=== PATIENT | female | born 1965 | race Caucasian/White ===

== ENCOUNTER → 2017-07-11 | Outpatient (CLI) | payer BC ==
--- NOTE | 2017-07-12 14:01 | MR ---
EXAMINATION TYPE: MR liver wo/w con and mrcp DATE OF EXAM: 07/11/2017 COMPARISON: Liver ultrasound June 19, 2017. MRI lumbar spine June 11, 2017 HISTORY: Liver lesion, Abnormal findings CONTRAST: Standard multiplanar, multisequence MRI departmental protocol utilizing 7 mL intravenous Gadavist dipti olinium contrast. Thin and thick slice MRCP imaging is performed without contrast. FINDINGS: LIVER/GB/PANCREAS: Liver is felt overall upper limits of normal in size on MRI. Gallbladder is within normal limits. There is mild central intrahepatic biliary dilatation. There is more moderate extrahe patic biliary dilatation. No obstructing mass or stone is clearly seen. Pancreatic duct is visualized but not suspiciously dilated. Pancreas is overall normal in size without worrisome solid or cystic m ass. Corresponding to recent MRI there is subcentimeter T2 hyperintense lesion posterior segment righ t hepatic lobe image 25 series 501, this lesion shows homogeneous enhancement but reflect flash filli ng hemangioma. No additional worrisome solid or cystic intrahepatic mass is seen. OTHER: Lung bases are grossly clear. There is partial visualization of bilateral breast implants prob able silicone implants. The spleen and both adrenal glands are normal in size and appear grossly unre markable. Visualized bowel shows no suspicious dilatation. There is no concerning abdominal fluid col lection. There is no greater than 1 cm abdominal adenopathy. There is small hemangioma left L4 verteb ra. IMPRESSION: 1. Corresponding to lumbar spine MRI there is 8 mm lesion posterior segment right hepatic lobe that s hows homogeneous enhancement, flash filling hemangioma is favored. 2. There is mild central intrahepatic and more moderate extrahepatic biliary dilatation without obvio us obstructing mass or stone. Perhaps there is stricture at the duodenal ampulla. Consider ERCP to ex clude ampullary mass not identified on MRI.
== END | disposition home or self-care (01) ==
LOC: RADMRIMAIN 12:11
PROVIDERS: ATTEND Internal Medicine Gastroenterology
DX: K76.9 Liver disease, unspecified (principal); R93.2 Abnormal findings on diagnostic imaging of liver and biliary tract
CPT/HCPCS: 82565; 74183; A9581

== ENCOUNTER 2017-07-14 07:53 | Day surgery (SDC) | payer BC, OTHER ==
[2017-07-08 23:26] VITALS: BMI 27.4
[~2017-07-14 07:53] MED LIST: LACTATED RINGERS 1,000 ML IV SCH; LIDOCAINE 1% 20 ML VIAL (10MG/ML) FOR IV START INTRADERMA PRN
[2017-07-14 08:29] VITALS: PULSE 80; TEMP 97
[2017-07-14] MEDS ORDERED: PROPOFOL 10 MG/ML 20 ML VIAL IV ONE (09:08)
--- NOTE | 2017-07-14 09:32 | P.PCN ---
Date of Procedure: 07/14/17 Preoperative Diagnosis: Change in bowel habits, questionable hepatic lesion Postoperative Diagnosis: Diverticuli, internal hemorrhoids, questionable hyperplastic change at 30 cm biopsy obtained Procedure(s) Performed: Colonoscopy with biopsy 30 cm Anesthesia: MAC Surgeon: Danica Adams Estimated Blood Loss (ml): 0 IV fluids (ml): 400 Pathology: other (Cold biopsy 30 cm) Condition: stable Disposition: PACU Indications for Procedure: Change in bowel habits, questionable liver lesion, rule out metastatic disease from colon primary Operative Findings: Diverticuli, internal hemorrhoids, questionable hyperplastic change at 30 cm biopsy obtained Description of Procedure: Patient was taken to the endoscopy suite and following sedation rectal exam was performed patient was noted to have good sphincter tone no masses colonoscope was passed through the anus into the rectum to the sigmoid colon up to splenic flexure transverse colon hepatic flexure right colon down to the area of the cecum circumferential observation mucosa did not reveal any lesions of concern in the cecum or right colon no lesions of concern in the transverse colon no lesions of concern in the left colon scattered diverticuli noted in the sigmoid colon. At 30 cm a small hyperplastic questionable change was noted and cold biopsy was obtained. Scope was brought down to the rectum where it was retroflexed internal hemorrhoids identified. Approximately 7 minutes were taken to withdraw the scope from the area of the cecum to the rectum. Impression/plan: 1. Questionable hyperplastic change 30 cm biopsy obtained 2. Scattered diverticuli 3. Internal hemorrhoids Plan: 1. Await results of biopsy most likely repeat scope 7-10 years 2. Conservative management diverticuli and hemorrhoids
--- NOTE | 2017-07-14 09:33 | P.DS ---
Providers Attending physician: Danica Adams Primary care physician: Josué Isbell Plan - Discharge Summary New Discharge Prescriptions: No Action amLODIPine [Norvasc] 10 mg PO DAILY traMADol HCL [Ultram] 50 mg PO Q6HR PRN PRN Reason: Pain Lisinopril [Prinivil] 10 mg PO DAILY Vortioxetine Hydrobromide [Trintellix] 10 mg PO QAM Levothyroxine Sodium 112 mcg PO QAM traZODone HCL 75 - 100 mg PO HS Albuterol Inhaler [Ventolin Hfa Inhaler] 2 puff INHALATION Q6HR PRN PRN Reason: sob Estrogens, Conjugated Cream [Premarin Cream] 1 applicator VAGINAL DAILY Multivitamins, Thera [Multivitamin (formulary)] 1 tab PO DAILY Discharge Medication List Albuterol Inhaler [Ventolin Hfa Inhaler] 2 puff INHALATION Q6HR PRN 07/08/17 [ History] Estrogens, Conjugated Cream [Premarin Cream] 1 applicator VAGINAL DAILY [History] Levothyroxine Sodium 112 mcg PO QAM 07/08/17 [History] Lisinopril [Prinivil] 10 mg PO DAILY 07/08/17 [History] Multivitamins, Thera [Multivitamin (formulary)] 1 tab PO DAILY 07/08/17 [History ] Vortioxetine Hydrobromide [Trintellix] 10 mg PO QAM 07/08/17 [History] amLODIPine [Norvasc] 10 mg PO DAILY 07/08/17 [History] traMADol HCL [Ultram] 50 mg PO Q6HR PRN 07/08/17 [History] traZODone HCL 75 - 100 mg PO HS 07/08/17 [History] Follow up Appointment(s)/Referral(s): Danica Adams MD [STAFF PHYSICIAN] - 1 Week Activity/Diet/Wound Care/Special Instructions: Do not drive today Discharge Disposition: HOME SELF-CARE
[2017-07-14 09:56] VITALS: RESP 18
--- NOTE | 2017-07-14 10:25 | P.PCN ---
Date of Procedure: 07/14/17 Procedure(s) Performed: Procedure: Esophagogastroduodenoscopy and biopsy. Preoperative diagnosis: Chronic reflux symptoms. Postoperative diagnosis: 1. Small sliding hiatal hernia with no obvious esophagitis or complicated reflux disease. 2. Mild antral gastritis. 3. Multiple biopsies obtained from the duodenum, antrum and esophagus. Preparation and sedation: Were provided by anesthesia. Brief clinical history: The patient is a 52-year-old female who was scheduled today for colonoscopy with Dr. Adams for screening for neoplasia. She was simultaneously scheduled for an EGD with [facility] because of chronic reflux symptoms. The patient has no alarm symptoms. Her colonoscopy revealed a small hyperplastic type polyp which was biopsied. The patient is following in our office for incidental finding of a hepatic lesion and hepatomegaly on an MRI of her spine. Procedure: With the patient on her left lateral decubitus position and after informed consent and adequate sedation I passed the Olympus-GIF 160 video upper endoscope through the cricopharyngeus down the esophagus. GE junction was around 37 cm from the incisors and there was a small sliding hiatal hernia but no obvious esophagitis or complicated reflux disease. At times, I noted the distal esophagus to go into spasm but there were no strictures or fixed narrowing. The endoscope was then passed into the stomach which was insufflated with air and inspected in detail including the retroflex view in the cardia. There was some mottling and erythema in the antrum but no ulcers or erosions. Pyloric channel, duodenal bulb, post bulbar area and descending duodenum appeared within normal limits. Because of her symptoms, I obtained biopsies from the duodenum, antrum and esophagus then the endoscope was withdrawn. The patient tolerated the procedure well. Plan: The patient was reassured. I discussed with her family as well. Will await pathology results. She will follow-up with you as planned and would keep you updated on her progress.
[2017-07-14 10:41] VITALS: BP 120/76
== END 2017-07-14 10:41 | disposition home or self-care (01) ==
LOC: ORWHC2ENDO 07:53
PROVIDERS: ATTEND Surgery
DX: K63.5 Polyp of colon (principal); K29.50 Unspecified chronic gastritis without bleeding; K44.9 Diaphragmatic hernia without obstruction or gangrene; K57.30 Diverticulosis of large intestine without perforation or abscess without bleeding; K64.8 Other hemorrhoids; R16.0 Hepatomegaly, not elsewhere classified; I10 Essential (primary) hypertension; F17.210 Nicotine dependence, cigarettes, uncomplicated; E78.5 Hyperlipidemia, unspecified; J44.9 Chronic obstructive pulmonary disease, unspecified; F41.9 Anxiety disorder, unspecified; R13.10 Dysphagia, unspecified; Z79.890 Hormone replacement therapy; Z79.899 Other long term (current) drug therapy; Z79.1 Long term (current) use of non-steroidal anti-inflammatories (NSAID)
CPT/HCPCS: 88305; 88342; 45380; 43239; J2704

== ENCOUNTER → 2017-08-11 | Outpatient (CLI) | payer BC ==
--- NOTE | 2017-08-12 08:35 | NM ---
Nuclear medicine hepatobiliary scan. HISTORY: Pain. DOSAGE: The patient received 8 fluid oz. of Ensure Plus and 5.4 mCi of Technetium 99m Choletec. FINDINGS: There is normal hepatic extraction. The gallbladder is seen by 25 minutes. There is bilia ry to bowel clearance by 50 minutes. Ejection fraction is 74%. IMPRESSION: 1. Normal hepatobiliary exam
== END | disposition home or self-care (01) ==
LOC: RADNMMAIN 14:56
DX: R10.11 Right upper quadrant pain (principal)
CPT/HCPCS: 78226; A9537

== ENCOUNTER → 2018-05-13 | Outpatient (CLI) | payer BC ==
--- NOTE | 2018-05-13 14:58 | XR ---
EXAMINATION TYPE: XR knee complete RT DATE OF EXAM: 05/13/2018 COMPARISON: NONE HISTORY: Pain TECHNIQUE: Four views are submitted. FINDINGS: Joint spaces are preserved. Osseous structures are intact. No acute fracture seen. Diffuse osteope stevo. Small amount of fluid in the suprapatellar bursa. IMPRESSION: 1. No acute fracture or dislocation. Small amount of fluid in the suprapatellar bursa. If there is c oncern for internal derangement correlate with MRI.
== END | disposition home or self-care (01) ==
LOC: RADXRMAIN 14:37
PROVIDERS: ATTEND Family Medicine
DX: M17.11 Unilateral primary osteoarthritis, right knee (principal)

== ENCOUNTER → 2024-09-23 | Outpatient (CLI) | payer BC ==
--- NOTE | 2024-09-24 12:30 | CT ---
EXAMINATION TYPE: CT angio neck DATE OF EXAM: 09/23/2024 4:09 PM COMPARISON: None CLINICAL INDICATION: Female, 59 years old with history of I65.23 OCCLUSION AND STENOSIS OF CAROTID AR TERIES; Hx. Carotid stenosis TECHNIQUE: Axially acquired helical CT Angiogram of the Neck was obtained with and without contrast. Axial images are supplemented with coronal and sagittal MIP reconstructions. 3D reconstructions were also performed and were post-processed at an independent workstation. Estimated carotid stenosis was calculated using the NASCET criteria. Contrast used:65 mL of Isovue 370 with IV Contrast, Oral contrast used: , None. CT DLP: 264.6 mGycm, Automated exposure control for dose reduction was used. FINDINGS: CTA NECK: Right Carotid System: The common carotid artery and external carotid artery are patent. The proximal internal carotid arter y demonstrates noncalcified plaque with 26% stenosis. The remaining portions of the internal carotid artery demonstrate normal size without significant narrowing. Left Carotid System: The common carotid and external carotid arteries are patent. There is approximately 25% stenosis at t he carotid bifurcation secondary to calcified plaque. The rest of the internal carotid artery is wise nt. Vertebral arteries are patent without evidence hemodynamically significant stenosis. Diminutive right intracranial vertebral artery. Left dominant vertebral artery. There is a three-vessel aortic arch. The origins of the great vessels are patent. No evidence of hemo dynamically significant stenosis. IMPRESSION: 1. No evidence of dissection of the cervical internal carotid arteries or vertebral arteries or any e vidence of significant stenosis at the carotid bifurcations. 2. Diminutive right intracranial vertebral artery with dominant left vertebral artery system. [facility], , 09/24/2024 12:27 PM
== END | disposition home or self-care (01) ==
LOC: RADCTMAIN 09-19 09:19
PROVIDERS: ATTEND Internal Medicine
DX: I65.23 Occlusion and stenosis of bilateral carotid arteries (principal)
CPT/HCPCS: 70498; Q9967

== ENCOUNTER → 2024-11-10 | Outpatient (CLI) | payer BC ==
[~2024-11-10] MED LIST changes: +DOBUTamine DRIP for NUC MED 500 MG in DEXTROSE/WATER 1 250ML.BAG IV PRN; -LACTATED RINGERS 1,000 ML IV SCH; -LIDOCAINE 1% 20 ML VIAL (10MG/ML) FOR IV START INTRADERMA PRN
--- NOTE | 2024-11-10 17:27 | CA ---
Dobutamine Stress Echocardiogram Report Loan Campos Age: 59 Gender: F : 1965 Exam Date: 11/10/2024 11:24 Exam Location: [facility] Ordering Physician: Chika Boateng MD Referring Physician: Chika Boateng MD Skilled Nursing Case Manager: BERT, Technologist: Ht (in): 64 Wt (lb): 155 Procedure CPT: Indication: I25.84 CORONARY ATHEROSCLEROSIS DUE TO CALCIFIED C ICD-9 Codes: Rhythm: Patient History: Chest pain, shortness of breath, palpitations, and hypertension. Cardiac Medications: ALBUTEROL,,,,,, LISINOPRIL,,,,,, ZANAX,,,,,, CRESTOR,,,,,, ASA,,,,,, NORVASC,,,,, Medications in past 24 hours: Contrast: Definity Total Dose (mL): 2 Stress Results Protocol: Dobutamine Peak Dose (???g/kg/min): 40 Duration (min:sec): Atropine:(mg) Target HR: 135 Double Product: [id number] Resting HR: 66 Resting BP: 139 / 85 Peak HR: 140 Peak BP: 159 / 66 Max Predicted HR: 159 88 % Max Predicted HR Stress Summary: BP Response: Reason for Termination: Target HR Cardiac Symptoms: NO SYMPTOMS ECG Analysis Resting EKG: Stress EKG: Arrhythmia: Echo Analysis Base Echo Analysis: Low Echo Anaylsis: Peak Echo Analysis: Recovery Echo: MEASUREMENTS (Male/Female) Normal Values CONCLUSIONS Baseline EKG revealed normal sinus rhythm. With dobutamine administration as per protocol the heart rate went up to [address] segment changes were noted not suggestive of ischemia. No significant arrhythmia. By EKG criteria this is unremarkable dobutamine stress test by EKG criteria Baseline echo images revealed normal wall motion and wall thickening. Echo contrast was used to enhance image quality. With dobutamine administration there was progressive increase in contractility of all segments suggesting that there is no evidence of ischemia. Baseline echo images revealed normal wall motion and wall thickening. Echo contrast was used to enhance image quality. With dobutamine administration there was progressive increase in contractility of all segments suggesting that there is no evidence of ischemia. Baseline echo images revealed normal wall motion and wall thickening. Echo contrast was used to enhance image quality. With dobutamine administration there was progressive increase in contractility of all segments suggesting that there is no evidence of ischemia. Final impression: By EKG criteria this is unremarkable dobutamine stress test and an normal dobutamine stress echocardiogram without evidence of ischemia Dr. Osorio Barajas MD (Electronically Signed) Final Date: 10 Nov 2024 17:26
== END | disposition home or self-care (01) ==
LOC: RADNMMAIN 10:40
PROVIDERS: ATTEND Internal Medicine
DX: I10 Essential (primary) hypertension (principal); I25.84 Coronary atherosclerosis due to calcified coronary lesion; R00.2 Palpitations
CPT/HCPCS: 93351; Q9957